=== PATIENT | female | born 1965 | race Caucasian/White ===

== ENCOUNTER 2017-01-27 17:27 | Emergency (ER) | payer MEDICAID ==
[~2017-01-27] VITALS: Ht 160 cm; Wt 50.0 kg
[2017-01-27 20:21] LABS: CHLORIDE 109 mEq/L (98-107); INDEX HEMOLYSI 1 (1-3); INDEX ICTERIC 1 (1-4); INDEX LIPEMIC 1 (1-3)
[2017-01-27 20:25] LABS: HEMATOCRIT. 40.1 % (36.0-48.0); MEAN CORPUSCULAR HGB CONC 32.5 g/dL (31.0-37.0); MEAN PLATELET VOLUME 9.1 fl (7.4-10.4); PLATELET 299 x1000/uL (130-400); RED BLOOD CELL COUNT 5.01 mill/uL (4.2-5.4); RED CELL DISTRIBUTION WIDTH 15.8 % (11.6-14.6); WHITE BLOOD COUNT 15.9 x1000/uL (4.5-11.0)
[2017-01-27 20:28] LABS: ALANINE AMINOTRANSFERASE 19 IU/L (13-61); ANION GAP 15; CALCIUM 8.3 mg/dL (8.5-10.1); CARBON DIOXIDE 22 mEq/L (21-32); DIFFERENTIAL COMMENT 1; UREA NITROGEN BLOOD 13 mg/dL (7-21); eGFR > 60 mL/min (>60)
[2017-01-27 20:59] LABS: ANISOCYTOSIS 1+; PLATELET ESTIMATE NORMAL
[2017-01-27 23:02] LABS: *BARBITURATES SCREEN URINE NEGATIVE (NEGATIVE); *BENZODIAZEPINES SCREEN URINE NEGATIVE (NEGATIVE); *COCAINE SCREEN URINE NEGATIVE (NEGATIVE); CANNABINOID URINE SCREEN NEGATIVE (NEGATIVE); ECSTASY MDMA SCREEN URINE NEGATIVE (NEGATIVE); METHADONE URINE SCREEN NEGATIVE (NEGATIVE); OPIATES URINE SCREEN NEGATIVE (NEGATIVE); PHENCYCLIDINE URINE SCREEN NEGATIVE (NEGATIVE)
[2017-01-27 23:03] LABS: *AMPHETAMINES SCREEN URINE PRESUMTIVE POSITIVE (NEGATIVE)
[2017-01-27] MEDS ORDERED: LORAZEPAM 1MG TABLET PO ONE (23:30)
[2017-01-28 07:45] VITALS: BP 117/72
== END 2017-01-28 10:25 | disposition home or self-care (01) ==
LOC: ER 17:40
DX: F41.9 Anxiety disorder, unspecified (principal); F15.10 Other stimulant abuse, uncomplicated; Z87.440 Personal history of urinary (tract) infections; Z98.890 Other specified postprocedural states; Z87.19 Personal history of other diseases of the digestive system
CPT/HCPCS: 36415; 71010; 80053; 80305; 81025; 85025; 93005; 99285; Z7610

== ENCOUNTER 2017-04-24 16:51 | Emergency (ER) | payer MEDICAID ==
[~2017-04-24] VITALS: Ht 154.9 cm; Wt 59.0 kg
[2017-04-24] MEDS ORDERED: SODIUM CHLORIDE 0.9% 1,000 ML IV ONE (19:00)
[2017-04-24] MEDS ORDERED: ACETAMINOPHEN 500MG TABLET PO ONE (19:00)
[2017-04-24 19:19] LABS: CLARITY URINE CLEAR (CLEAR); COLOR URINE YELLOW (YELLOW); GLUCOSE URINE NEGATIVE (NEGATIVE); KETONES URINE NEGATIVE (NEGATIVE); LEUKOCYTE ESTERASE URINE 1+ (NEGATIVE); NITRITE URINE NEGATIVE (NEGATIVE); OCCULT BLOOD URINE 1+ (NEGATIVE); PROTEIN URINE NEGATIVE (NEGATIVE); SPECIFIC GRAVITY URINE 1.007 (1.005-1.030)
[2017-04-24 21:00] VITALS: BP 130/84
== END 2017-04-24 21:40 | disposition home or self-care (01) ==
LOC: ER 18:40
DX: N10 Acute pyelonephritis (principal); Z98.890 Other specified postprocedural states
CPT/HCPCS: 81001; 81025; 96360; 99284; J7030; Z7610

== ENCOUNTER 2017-10-02 16:27 | Emergency (ER) | payer MEDICAID ==
[~2017-10-02] VITALS: Ht 162.6 cm; Wt 45.0 kg
[2017-10-02] MEDS ORDERED: IBUPROFEN 600MG TABLET PO ONE (17:00)
[2017-10-02] MEDS ORDERED: LORAZEPAM 0.5MG TABLET PO ONE (17:00)
[2017-10-02 17:06] VITALS: BP 160/89
== END 2017-10-02 17:30 | disposition home or self-care (01) ==
LOC: ER 16:35
DX: R51 Headache (principal); F91.8 Other conduct disorders; R45.851 Suicidal ideations; R03.0 Elevated blood-pressure reading, without diagnosis of hypertension
CPT/HCPCS: 99283

== ENCOUNTER 2019-03-04 12:02 | Emergency (ER) | payer MEDICAID ==
[~2019-03-04] VITALS: Ht 154.9 cm; Wt 75.0 kg
[2019-03-04] MEDS ORDERED: KETOROLAC 60MG/2ML VIAL IM ONE (13:45)
[2019-03-04] MEDS ORDERED: DIAZEPAM 5 MG TABLET PO ONE (13:45)
[2019-03-04 14:49] VITALS: BP 148/88
== END 2019-03-04 14:50 | disposition home or self-care (01) ==
LOC: ER 12:02
DX: M54.40 Lumbago with sciatica, unspecified side (principal); I10 Essential (primary) hypertension; Z98.890 Other specified postprocedural states
CPT/HCPCS: 96372; 99283; J1885

== ENCOUNTER 2023-01-29 13:47 | Emergency (ER) | payer MEDICAID, OTHER ==
[~2023-01-29] VITALS: Ht 154.9 cm; Wt 91.0 kg
[~2023-01-29 13:47] MED LIST: AMLO5TAB88 MT; ARIP10TA56 MT; LIP40 MT; PROP10TA10 PO; SERT-422 MT; TRAZ-251 PO
[2023-01-29 13:51] VITALS: BP 163/101
[2023-01-29] MEDS ORDERED: ACETAMINOPHEN 325MG TABLET PO NR (16:45)
[2023-01-29] MEDS ORDERED: ONDANSETRON HCL 4MG TABLET PO NR (16:45)
[2023-01-29 17:50] LABS: BASOPHILS % 0.8 % (0.0-2.0); EOSINOPHILS % 3.1 % (0.0-5.0); HEMATOCRIT. 41.8 % (36.0-48.0); LYMPHOCYTES % 26.4 % (20.0-50.0); MEAN CORPUSCULAR HEMOGLOBIN 28.9 pg (28.0-32.0); MEAN CORPUSCULAR VOLUME 86.4 fL (81.0-99.0); MEAN PLATELET VOLUME 9.3 fl (7.4-10.4); MONOCYTES % 9.2 % (2.0-8.0); NEUTROPHILS % 60.5 % (40.0-76.0); PLATELET 235 x1000/uL (130-400); RED BLOOD CELL COUNT 4.83 mill/uL (4.2-5.4); RED CELL DISTRIBUTION WIDTH 14.6 % (11.6-14.6)
[2023-01-29 18:04] LABS: CHLORIDE 112 mEq/L (98-107)
[2023-01-29] MEDS ORDERED: ONDA4TAB50 MT (18:48)
== END 2023-01-29 19:19 | disposition home or self-care (01) ==
LOC: ER 13:47
DX: J06.9 Acute upper respiratory infection, unspecified (principal); I10 Essential (primary) hypertension; R94.31 Abnormal electrocardiogram [ECG] [EKG]
CPT/HCPCS: 36415; 71045; 80053; 84145; 85025; 85379; 87804; 93005; 99285; Q0162